=== PATIENT | female | born 2000 | race African-American/Black ===

== ENCOUNTER 2023-01-01 09:32 | Emergency (ER) | payer OTHER, SELFPAY ==
[2023-01-01 09:39] VITALS: BP 114/71; PULSE 77; RESP 19; TEMP 36.6; O2SAT 98; BMI 32.9
--- NOTE | 2023-01-01 09:46 | ED.GENADULT ---
HPI - General Adult General Chief complaint: General Medical Stated complaint: throat pain possible strep Time Seen by Provider: 01/01/23 09:46 Source: patient Mode of arrival: ambulatory Limitations: no limitations History of Present Illness HPI narrative: 22-year-old female presents with fatigue, malaise, subjective fevers and chills, diarrhea, cough and sore throat for the past week not improving.? Reports sore throat is worse with swallowing.? Significant other with similar symptoms and coworker strep +.. Reports negative covid test.? Denies chest pain, shortness of breath, nausea, vomiting, abdominal pain, headache, vision changes, dizziness and weakness. Related Data Previous Rx's Medication Instructions Recorded amoxicillin 875 mg-potassium 1 tab PO BID 10 days #20 tabs 01/01/23 clavulanate 125 mg tablet benzonatate 100 mg capsule 100 mg PO BID PRN cough #20 caps 01/01/23 loperamide 2 mg capsule 2 mg PO Q6H PRN loose stool #20 01/01/23 caps Allergies Allergy/AdvReac Type Severity Reaction Status Date / Time Unable to Assess Allergy Unverified 01/01/23 09:51 Review of Systems Review of Systems: Constitutional : No Weight loss, No Fever, No Chills, + Fatigue, + Malaise ENT/Mouth : No sore throat, No Rhinorrhea Eyes: No Eye Pain, No Swelling, No Redness Cardiovascular : No Chest Pain, No SOB, No Dyspnea on Exertion, No Orthopnea, No Edema, No Palpitations Respiratory : + Cough, No Sputum, No Wheezing Gastrointestinal : No Nausea, No Vomiting, + Diarrhea, No Constipation, No abdominal Pain, No Hematochezia, No Melena Genitourinary : No Dysuria, No Urinary Frequency, No Hematuria, Musculoskeletal : No joint pain, + Myalgias, No Joint Swelling Skin : No Skin Lesions, No rash Neuro : No Weakness, No Numbness, No Dizziness, No Headache Psych : No Anxiety/Panic, No Depression All other systems reviewed and are negative Yes all other systems are reviewed and are negative [facility] Past Medical History Attestation statement: The following information was validated with the patient. Source: old records reviewed and nursing notes reviewed Physical Exam ED Vital Signs: Vital Signs - 24 hr 01/01/23 09:39 Temperature 98 F Pulse Rate 77 Respiratory Rate 19 Blood Pressure 114/71 Pulse Oximetry 98 BMI result Body Mass Index 32.9 Vital signs stable Appearance: Alert.? Oriented X3.? No acute distress.? Head: Normocephalic, atraumatic, no step-offs or deformities Eyes: Pupils equal, round and reactive to light.? ENT: Pharynx with?erythematous tonsils bilaterally, no exudates or edema.? Uvula midline.? Patient is speaking in full sentences controlling secretions well no palpable lymphadenopathy. Neck: Normal inspection.? Neck supple.? CVS: Normal heart rate and rhythm.? Pulses normal.? Respiratory: No respiratory distress.? Breath sounds normal.? Abdomen: Soft and nontender.? Skin: Skin warm and dry.? Normal skin color.? Normal skin turgor.? Extremities: No lower extremity edema.? No calf ttp. 5/5 strength to bilateral upper and lower extremities Neuro: Oriented X 3.? No motor deficit.? No sensory deficit. CN 2-12 intact Medical Decision Making Medical Decision Making [facility] Narrative: 0948 22-year-old female presenting fatigue, malaise, subjective fevers and chills, sore throat, cough, myalgias, diarrhea times a week no improving. Physical exam significant for erythematous tonsils bilaterally no exudates or edema. Uvula midline. Patient speaking in full sentences controlling secretions well. This is likely viral illness versus strep pharyngitis.? Unlikely epiglottitis, peritonsillar abscess, ? retropharyngeal abscess,no signs of airway compromise. Unlikely pneumonia, PE, pneumothorax. ?Plan viral testing. Differential Diagnosis Differential Diagnoses: The differential diagnosis associated with the presentation includes This is likely viral illness versus strep pharyngitis.? Unlikely epiglottitis, peritonsillar abscess, ? retropharyngeal abscess,no signs of airway compromise. Unlikely pneumonia, PE, pneumothorax. Admission/Observation Consideration of admission/observation: Escalation of care including admission/observation considered Lab Data [facility] Lab Attestation statement: I reviewed the patient's lab results. Core Measures AMI core measures followed: Yes Measure exclusions: not indicated Critical Care Time Critical Care Time Critical Care Time: No Discharge Plan Discharge Clinical Impression: Viral illness, Pharyngitis Patient Disposition: Home, Self-Care Instructions: Viral Syndrome (ED) Additional Instructions: Take your medications as prescribed. If you were prescribed antibiotics today, it is important that you take your medication to their entirety, do not skip any doses, do not finish them early. Follow-up with your primary care provider this week. Return to the emergency department with new or worsening symptoms. Such as fevers, chills, chest pain, shortness of breath, nausea, vomiting, dizziness, headache, vision changes, lethargy In case of emergency call 911 Loperamide has been sent to her pharmacy for diarrhea. Benzonate has been sent to the pharmacy for cough Prescriptions: New benzonatate 100 mg capsule 100 mg PO BID PRN (Reason: cough) Qty: 20 0RF loperamide 2 mg capsule 2 mg PO Q6H PRN (Reason: loose stool) Qty: 20 0RF amoxicillin-pot clavulanate 875-125 mg tablet 1 tab PO BID 10 Days Qty: 20 0RF Referrals: Physician,Unknown J [Primary Care Provider] - 2 days Stand Alone Forms: Work/School Release
[2023-01-01 10:00] LABS: IDNOW Serial# 08D9AD1C; Strep A Nucleic Acid Negative (Negative)
== END 2023-01-01 10:32 | disposition home or self-care (01) ==
PROVIDERS: Emergency Provider Emergency Medicine
DX: J02.9 Acute pharyngitis, unspecified (principal); B34.9 Viral infection, unspecified; Z79.899 Other long term (current) drug therapy
CPT/HCPCS: 87651; 99283

== ENCOUNTER 2023-05-04 14:58 | Emergency (ER) | payer OTHER, SELFPAY ==
--- NOTE | ~2023-05-04 | XR_ITS ---
EXAMINATION: XR KNEE, RIGHT CLINICAL INFORMATION: Knee pain and swelling COMPARISON: None available. TECHNIQUE: Frontal, lateral and bilateral oblique views were acquired of the right knee. FINDINGS: No fracture or joint effusion. Alignment is anatomic. Joint spaces are maintained. No abnormal soft tissue calcification. XR/XR knee RT 4V IMPRESSION: Unremarkable plain radiographs of the right knee.
--- NOTE | ~2023-05-04 | XR_ITS ---
EXAMINATION: XR FOOT, RIGHT CLINICAL INFORMATION: Right knee pain and swelling COMPARISON: None available. TECHNIQUE: AP, lateral, and oblique views of the right foot. FINDINGS: The bones and soft tissues are normal. No fracture. Alignment is anatomic. Joint spaces are maintained. XR/XR foot RT min 3V IMPRESSION: Unremarkable plain radiographs of the right foot.
--- NOTE | ~2023-05-04 | US_ITS ---
EXAMINATION: US VENOUS ULTRASOUND WITH DOPPLER LOWER EXTREMITY, RIGHT CLINICAL INFORMATION: Right leg pain and swelling COMPARISON: None available. TECHNIQUE: Ultrasound of the deep veins is performed from the hip to the calf with compression sonography and color and pulse Doppler assessment. Spectral analysis with color-flow imaging is performed. FINDINGS: There is normal venous compression and respiratory variation and augmented flow. The visualized common femoral vein, superficial femoral vein, profunda femoral vein, popliteal vein, and the trifurcation region shows no evidence of deep venous thrombosis. There is no significant popliteal fossa cyst. US/US venous duplex LE RT IMPRESSION: No DVT demonstrated in the right lower extremity.
[2023-05-04 15:26] VITALS: BP 118/84; PULSE 78; RESP 18; TEMP 37.2; O2SAT 99; BMI 34.4
--- NOTE | 2023-05-04 15:29 | ED.EXTPRO ---
HPI - Extremity Problem General Chief complaint: Extremity Injury, Lower Stated complaint: r ankle swollen Time Seen by Provider: 05/04/23 16:45 Source: patient Mode of arrival: ambulatory History of Present Illness HPI Narrative: 23-year-old female who presents with atraumatic right foot and knee pain and denies any insect bites, denies any past medical history, denies any sickle cell trait or sickle cell disease. Patient states that the bottom of her foot hurts and that was read on Monday. Related Data Previous Rx's Medication Instructions Recorded amoxicillin 875 mg-potassium 1 tab PO BID 10 days #20 tabs 01/01/23 clavulanate 125 mg tablet benzonatate 100 mg capsule 100 mg PO BID PRN cough #20 caps 01/01/23 loperamide 2 mg capsule 2 mg PO Q6H PRN loose stool #20 01/01/23 caps Allergies Allergy/AdvReac Type Severity Reaction Status Date / Time No Known Allergies Allergy Verified 01/01/23 10:26 Review of Systems Review of Systems: Pertinent positives and negatives as stated in HPI [facility] Past Medical History Source: nursing notes reviewed Social History Social History Advance Directives: No Advance Directives Information Provided: No Physical Exam Vital Signs: Vital Signs: Last Vital Signs Temp 98.9 F 05/04/23 15:26 Pulse 78 05/04/23 15:26 Resp 18 05/04/23 15:26 BP 118/84 05/04/23 15:26 Pulse Ox 99 05/04/23 15:26 O2 Del Method Room Air 05/04/23 15:26 BMI result Body Mass Index 34.4 VITAL SIGNS: Reviewed. GENERAL: Well developed, well nourished, in no acute distress. HEAD: Normocephalic/atraumatic EYES: PERRLA, EOMI LUNGS: Normal breath sounds. No adventitious sounds or accessory muscle use. SpO2<99> CARDIOVASCULAR: Regular rate and rhythm without noted murmurs ABDOMEN: Soft, non-tender, non-distended with bowel sounds. MUSCULOSKELETAL: No tenderness, deformities, or effusions noted on gross inspection. EXTREMITIES: No cyanosis, clubbing or edema. RIGHT KNEE: No erythema, deformity, induration, swelling, no tenderness to palpation. RIGHT LOWER EXTREMITY: No erythema, induration, palpable cords, there is no swelling along either malleoli, there is palpable DP and PT with good capillary refill, there are no nonhealing wounds. SKIN: Inspection of the skin reveals no rashes NEUROLOGIC: Alert and oriented x 4. Strength and sensation to light touch were grossly intact x 4. Course Course Course Narrative: ARUN- 15:30PM - 23yoF presenting to the ER with complaints of right foot pain/swelling at the medial aspect that is coming up her aguilera/calf area that started a few days ago and continues to worsen. She denies any injuries or any other symptoms complaints or concerns at this time. Plan: X-ray of right foot, right knee and ultrasound of right lower extremity ordered at this time patient is stable to go back to the waiting room to be evaluated in the [facility]. Medical Decision Making Medical Decision Making [facility] Narrative: 23-year-old female with history and clinical presentation, DDX: Tendinitis, arthritis, plantar fasciitis but very low clinical suspicion for infection/fracture/dislocation. I reviewed all imaging studies which are negative for fracture or dislocation otherwise my interpretation is that patient has an unclear tendinitis or arthritis in the possibility of plantar fasciitis. This was discussed with her at bedside she was strongly encouraged to follow-up with primary care doctor. Differential Diagnosis Differential Diagnoses: The differential diagnosis associated with the presentation includes Please see the discussion above Admission/Observation Consideration of admission/observation: Escalation of care including admission/observation considered Please see the discussion above Radiology Impression Discussion of test interpretation with radiology: I have reviewed the radiologist's reading. Radiologist Impression: Please see the discussion above Discharge Plan Discharge Clinical Impression: Plantar fasciitis, Ankle pain, right Patient Disposition: Home, Self-Care Instructions: Plantar Fasciitis (ED), Arthralgia (ED), Plantar Fasciitis Exercises (ED) Additional Instructions: 1. Tylenol 1000 mg, orally, every 6 hours as needed for pain control. Do not exceed 4000 mg within 24 hours. 2. Ibuprofen 400 mg, orally with milk or food, every 6 hours as needed for pain control. 3. Recommend following up with your primary care provider for re-evaluation and further outpatient management as indicated. Return to the ER for any worsening symptoms. Prescriptions: No Action benzonatate 100 mg capsule 100 mg PO BID PRN (Reason: cough) Qty: 20 0RF loperamide 2 mg capsule 2 mg PO Q6H PRN (Reason: loose stool) Qty: 20 0RF amoxicillin-pot clavulanate 875-125 mg tablet 1 tab PO BID 10 Days Qty: 20 0RF Discharge Date/Time: 05/04/23 17:23
== END 2023-05-04 17:23 | disposition home or self-care (01) ==
PROVIDERS: Emergency Provider Student in an Organized Health Care Education/Training Program
DX: M72.2 Plantar fascial fibromatosis (principal); M25.571 Pain in right ankle and joints of right foot; M25.561 Pain in right knee; R60.0 Localized edema
CPT/HCPCS: 73564; 73630; 93971; 99281; 99284